=== PATIENT | female | born 1955 | race Caucasian/White ===

== ENCOUNTER → 2021-06-26 | Outpatient (CLI) | payer MEDICARE, OTHER ==
[~2021-06-26] MED LIST: CATAPRES 0.1MG0.1 MG PO; CYCLOBENZAPRINE10 MG PO; MECLIZINE HCL25 MG PO; NORCO 5-325 TA1 EACH PO; ZOFRAN4 MG PO
== END ==
LOC: HEART 5 10:35
DX: R06.02 Shortness of breath (principal)
CPT/HCPCS: 94060; 94729